=== PATIENT | male | born 1995 | race African-American/Black ===

== ENCOUNTER 2019-04-16 17:16 | Emergency (ER) | payer OTHER ==
[~2019-04-16] VITALS: Ht 195.6 cm; Wt 77.2 kg
[2019-04-16] MEDS ORDERED: SODIUM CHLORIDE 0.9% 1,000 ML IV ONE (17:45)
[2019-04-16 19:48] VITALS: BP 118/79
== END 2019-04-16 20:45 | disposition home or self-care (01) ==
LOC: EMS 17:17
DX: T50.7X1A Poisoning by analeptics and opioid receptor antagonists, accidental (unintentional), initial encounter (principal); J45.909 Unspecified asthma, uncomplicated; F17.210 Nicotine dependence, cigarettes, uncomplicated; F12.90 Cannabis use, unspecified, uncomplicated; Y92.89 Other specified places as the place of occurrence of the external cause
CPT/HCPCS: 93005